=== PATIENT | male | born 1975 | race Caucasian/White ===

== ENCOUNTER 2021-05-17 14:20 | Emergency (ER) | payer OTHER ==
--- NOTE | 2021-05-17 15:56 | EDM.PDOC ---
ED HPI GENERAL MEDICAL PROBLEM - General Chief Complaint: Skin Complaint Stated Complaint: POSSIBLE SHINGLES Time Seen by Provider: 05/17/21 15:45 Source of Information: Reports: Patient, RN History Limitations: Reports: No Limitations - History of Present Illness INITIAL COMMENTS - FREE TEXT/NARRATIVE: Painful rash on forehead over right eye. Started on Tuesday. small blister formation. Pt concerned as this is near his eye. Has tried nothing for pain/itch at this time. Pt has not recevied shingles vaccines as is only 46. Onset Date: 05/12/21 Duration: Constant Location: Reports: Head, Face Quality: Reports: Burning Severity: Moderate Improves with: Reports: None Worsens with: Reports: None Associated Symptoms: Reports: No Other Symptoms Treatments [employer]: Reports: Other (see below) (None) - Related Data Allergies Allergy/AdvReac Type Severity Reaction Status Date / Time No Known Allergies Allergy Verified 05/17/21 15:02 Home Meds: Home Meds valACYclovir HCl [Valacyclovir] 1,000 mg PO TID #21 tablet 05/17/21 [Rx] Past Medical History - Past Health History Medical/Surgical History: Denies Medical/Surgical History Social & Family History - Tobacco Use Tobacco Use Status *Q: Never Tobacco User ED ROS GENERAL - Review of Systems Review Of Systems: See Below Constitutional: Reports: No Symptoms HEENT: Reports: Other (Pain above right eye just below rash) Skin: Reports: Rash, Erythema, Urticaria Psychiatric: Reports: No Symptoms ED EXAM, SKIN/RASH Exam: See Below Exam Limited By: No Limitations General Appearance: Alert, WD/WN, No Apparent Distress Eye Exam: Bilateral Eye: EOMI, Normal Inspection, PERRL Head: Facial Tenderness (Right forehead) Neck: Normal Inspection, Supple, Non-Tender Respiratory/Chest: No Respiratory Distress, Lungs Clear Cardiovascular: Normal Peripheral Pulses, Regular Rate, Rhythm Neurological: Alert, Oriented, CN II-XII Intact, Normal Cognition, Normal Gait Skin: Warm, Dry, Erythema, Increased Warmth (Right forehead), Rash (Shingles), Zoster-Like Rash (Right forehead) Location, Skin: Head Characteristics: Bullous, Urticarial, Erythematous Lymphatic: No Adenopathy Course - Vital Signs Last Recorded V/S: Last Vital Signs Temp 36.0 C L 05/17/21 15:07 Pulse 53 L 06/27/21 15:07 Resp 14 05/17/21 15:07 BP 131/85 05/17/21 15:07 Pulse Ox 99 05/17/21 15:07 - Re-Assessments/Exams Free Text/Narrative Re-Assessment/Exam: 05/17/21 15:58 Educated patient outbreak is shingles. He is too young for vaccine however he may request this now from his primary care provider. Valacyclovir 1000 mg 3 times a day provided to patient due to proximity near right eye. Patient to take all medication until gone if continues to have symptoms follow with primary care provider to reevaluate. Departure - Departure Time of Disposition: 16:43 Disposition: Home, Self-Care 01 Condition: Fair Clinical Impression: Shingles outbreak - Discharge Information *PRESCRIPTION DRUG MONITORING PROGRAM REVIEWED*: Not Applicable *COPY OF PRESCRIPTION DRUG MONITORING REPORT IN PATIENT THOMAS: Not Applicable Prescriptions: valACYclovir HCl [Valacyclovir] 1,000 mg PO TID #21 tablet Instructions: Shingles, [id number] Referrals: PCP,None [Primary Care Provider] - Forms: ED Department Discharge Additional Instructions: Most likely her 3 times a day for shingles rash. Follow with primary care provider for further evaluation if this does not provide relief Sepsis Event Note (ED) - Evaluation Sepsis Screening Result: No Definite Risk - Focused Exam Vital Signs: Vital Signs Temp Pulse Resp BP Pulse Ox 05/17/21 15:07 36.0 C L 53 L 14 131/85 99 - Assessment/Plan Assessment:: Shingles right forehead Plan: Valacyclovir 3 times a day for 7 days
== END 2021-05-17 16:44 | disposition home or self-care (01) ==
LOC: JP.ED 14:20
DX: B02.9 Zoster without complications (principal)
CPT/HCPCS: 99282; 99283